=== PATIENT | male | born 1965 | race African-American/Black ===

== ENCOUNTER 2022-03-22 08:20 | Emergency (ER) | payer MEDICAID ==
[~2022-03-22] VITALS: Ht 188 cm; Wt 99.8 kg
[2022-03-22 08:21] VITALS: BP 141/61
--- NOTE | 2022-03-22 08:23 | NUR ---
MEJIA GARVIN, VIA GURNEY TO BED 1. ACCOMPANIED BY ABRAHAM HILL.
--- NOTE | 2022-03-22 08:31 | NUR ---
DR GASCA AT BEDSIDE EVALUATING PT
--- NOTE | 2022-03-22 08:45 | NUR ---
56 y/o male biba for pre-book. Patient was running away from [facility] and got caught on a barbed wire fence. Patient is noted to have multiple abrasions on bilateral forearms. Patient states he "smokes crack everyday." Medical History: Substance Abuse NKDA
[2022-03-22] MEDS ORDERED: BACITRACIN OINT 500 UNITS/GM PKT TP ONE (09:20)
--- NOTE | 2022-03-22 09:40 | NUR ---
PER ER MD, PT LACERATIONS TO L ANTERIOR FOREARM, L WRIST, HAND CLEANED AND DRESSED WITH BANDAIDS
[2022-03-22 10:00] VITALS: BP 136/76
--- NOTE | 2022-03-22 10:00 | NUR ---
Patient discharged with v/s stable. Written and verbal after care instructions given. Patient verbalized understanding. Police with in custody. All questions addressed prior to discharge. Advised to follow up with PMD.
--- NOTE | 2022-03-22 10:00 | NUR ---
PATIENT BIB [place] [employer]. PATIENT EXAMINED BY DR. Arana. PATIENT MEDICALLY CLEARED AND RELEASED IN CUSTODY IN STABLE CONDITION. ORIGINAL PRE-BOOK FORM GIVEN TO OFFICER.
--- NOTE | 2022-03-22 10:01 | NUR ---
The patient's care was reviewed and supervised by Annie Mann RN.
== END 2022-03-22 10:00 ==
LOC: MED 08:20
DX: S41.111A Laceration without foreign body of right upper arm, initial encounter (principal); S41.112A Laceration without foreign body of left upper arm, initial encounter; F14.129 Cocaine abuse with intoxication, unspecified; F17.200 Nicotine dependence, unspecified, uncomplicated; Z02.89 Encounter for other administrative examinations; W22.09XA Striking against other stationary object, initial encounter; Y93.89 Activity, other specified; Y92.89 Other specified places as the place of occurrence of the external cause; Y99.8 Other external cause status
CPT/HCPCS: 99283